=== PATIENT | female | born 1995 | race African-American/Black ===

== ENCOUNTER 2023-06-18 19:14 | Emergency (ER) | payer OTHER ==
[~2023-06-18] VITALS: Ht 170.2 cm; Wt 125.2 kg
[2023-06-18 19:55] VITALS: BP 118/71; PULSE 76; RESP 16; TEMP 98.3; O2SAT 97
[2023-06-18] MEDS ORDERED: BACITRACIN OINT 500 UNITS/GM PKT TP ONE (21:44)
[2023-06-18] MEDS: LIDOCAINE MPF 1% 10 MG/ML VIAL INJ ONE (21:52)
[2023-06-18 21:54] VITALS: BP 118/71; PULSE 76; RESP 16; TEMP 98.3
[2023-06-18 21:55] VITALS: O2SAT 97
== END 2023-06-18 21:54 | disposition home or self-care (01) ==
LOC: MED 19:14
DX: S91.201A Unspecified open wound of right great toe with damage to nail, initial encounter (principal); Z79.899 Other long term (current) drug therapy; X58.XXXA Exposure to other specified factors, initial encounter; Y93.89 Activity, other specified; Y92.89 Other specified places as the place of occurrence of the external cause; Y99.8 Other external cause status
CPT/HCPCS: 11730; 73660; 99284; J2001